=== PATIENT | male | born 1965 | race Hispanic/Latino ===

== ENCOUNTER 2017-04-02 01:36 | Emergency (ER) | payer MEDICAID, OTHER ==
[2017-04-02 01:36] VITALS: BMI 31.1
[2017-04-02 01:59] VITALS: RESP 16
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
[2017-04-02 03:52] VITALS: BP 122/78; PULSE 78; TEMP 98.7; O2SAT 98
--- NOTE | 2017-04-02 15:12 | RAD ---
PROCEDURE: Left Ankle Radiographs. HISTORY: ankle pain COMPARISON: None FINDINGS: BONES: No fracture. Plantar calcaneal spur. JOINTS: Normal. No osteoarthritis. Ankle mortise maintained. Talar dome intact SOFT TISSUES: Normal. OTHER FINDINGS: None. IMPRESSION: No acute fracture. Plantar calcaneal spur noted
== END 2017-04-02 03:50 | disposition home or self-care (01) ==
LOC: H.ER 01:36
DX: M77.31 Calcaneal spur, right foot (principal); M25.579 Pain in unspecified ankle and joints of unspecified foot; R20.2 Paresthesia of skin; I10 Essential (primary) hypertension; M77.32 Calcaneal spur, left foot; Z87.891 Personal history of nicotine dependence; Z88.0 Allergy status to penicillin

== ENCOUNTER 2018-06-29 01:53 | Emergency (ER) | payer SELFPAY ==
[2018-06-29 02:42] VITALS: RESP 18; BMI 34.7
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
[2018-06-29 06:17] VITALS: BP 139/80; PULSE 85; TEMP 98
[2018-06-30 18:01] VITALS: O2SAT 98
== END 2018-06-29 06:17 | disposition home or self-care (01) ==
LOC: H.ER 01:53
DX: M54.9 Dorsalgia, unspecified (principal); G89.29 Other chronic pain; F17.200 Nicotine dependence, unspecified, uncomplicated; I10 Essential (primary) hypertension; Z88.0 Allergy status to penicillin